=== PATIENT | female | born 1940 | race Caucasian/White ===

== ENCOUNTER 2017-03-04 10:50 | Emergency (ER) | payer OTHER ==
[2017-03-04 10:55] VITALS: BP 144/83; BMI 30.1
--- NOTE | 2017-03-04 11:23 | DR.GENAD ---
HPI - PCP Primary Care Physician: DR CALDERON - HPI Comment HPI Comment: SIMILAR TO VERTIGO ATTACK 6 MONTHS AGO. TODAY WITH SEVERE HEADACHE. NO FEVER. SLIGHT CONGESTION PRESENT. WAS UNABLE TO HOLD DOWN MECLIZINE DUE TO NAUSEA. - Complaint/Symptoms Chief Complaint Doctors Comments: DIZZINESS AND ATAXIA SINCE LAST NIGHT. WOKE WITH N/V. Chief Complaint:: PATIENT STATED THAT SHE WOKE UP SICK AND THROWING UP THIS MORNING. SHE ALSO STATED THAT SHE HAS VERTIGO THAT STARTED LAST NIGHT WHEN SHE WENT TO BED. - Nurses notes reviewed Nurses Notes Review: Yes - Source History Provided: Patient - Mode of Arrival Mode of Arrival: Ambulatory - Timing Onset of Chief Complaint: 03/03/17 Came on: Suddenly - Duration Duration: Constant Duration: Hours - Severity Severity: Moderate PMH - PMH Past Medical History: Yes Past Medical History: Hypertension, Hyperthyroidism Past Surgical History: Yes Surgical History: Hysterectomy, Ortho Surgery, Thyroidectomy - Family History History of Family Medical Conditions: Yes Family Medical History: Cancer - Social History Does patient currently use any type of tobacco product: No Have you used tobacco products in the last 12 months: No Type of Tobacco Use: None Does any household member use tobacco: No Alcohol Use: None Do you use any recreational Drugs:: No Lives With: Family Lives Where: Home - infectious screening In the last 2 months have you had wt loss of >10#?: NO Have you had fever, night sweats or hemotysis?: No Have you traveled outside the country in the last 6 months?: No Isolation: Standard ROS - Review of Systems Constitutional: Weakness, Fatigue. negative: Chills, Fever Eyes: No Symptoms Reported ENTM: Nose Congestion. negative: Ear Pain, Nose Discharge, Throat Pain Respiratoy: No Symptoms Reported Cardiovascular: No Symptoms Reported Gastrointestinal/Abdominal: Nausea, Vomiting Genitourinary: No Symptoms Reported Neurological: Headache, Weakness, Dizziness Musculoskeletal: Muscle Pain Integumentary: No Symptoms Reported Hematologic/Lymphatic: No Symptoms Reported Endocrine: No Symptoms Reported All Other Systems: Reviewed and Negative PE - Vital Signs Vitals: Pulse Rate 56 Respiratory Rate 20 Blood Pressure 144/83 O2 Sat by Pulse Oximetry 100 - General Limitations: No Limitations General Appearance: Alert - Head Head Exam: Normal Inspection - Eyes Eye exam: Normal Appearance, PERRL, EOMI. negative: Conjunctival Injection, Periorbital Swelling, Periorbital Tenderness - ENT ENT Exam: Normal External Ear Exam TM/Canal Exam: Bilateral Bulging Nose Exam: Normal Nose Exam Mouth Exam: Normal Inspection Throat Exam: Normal Inspection - Neck Neck Exam: Normal Inspection, Trachea Midline - Chest Chest Inspection: Symmetric Chest Wall Rise - Respiratory Respiratory Exam: Normal Lung Sounds Bilat Respiratory Exam: Bilateral Clear to Auscultation - Cardiovascular Cardiovascular Exam: Regular Rate, Normal Rhythm, Normal Heart Sounds - Abdominal Exam Abdominal Exam: Normal Bowel Sounds, Soft. negative: Tenderness - Extremities Extremities Exam: Normal Inspection - Back Back Exam: Normal Inspection - Neurologic Neurological Exam: Alert, Oriented X3, CN II-XII Intact. negative: Motor Sensory Deficit - Psychiatric Psychiatric Exam: Normal Affect, Normal Mood - Skin Skin Exam: Normal Color MDM - Additional Information Additional Information Obtained From: Family - Differential Diagnosis Differential Diagnosis: VERTIGO, CVA, TIA, [place], SINUSITIS, LABYRINTHITIS Course - Treatment Treatment: SEE ORDERS - Education/Counseling Education/Counseling: Patient, Family, Education Educated On: Diagnosis, Needs for Follow Up ROR - Labs Reviewed Laboratory Results Reviewed?: Yes Result Diagrams: 03/04/17 11:36 03/04/17 11:36 Laboratory: WBC 5.7 X10^3/uL (3.6-10.0) 03/04/17 11:36 RBC 4.49 X10^6/uL (3.5-5.4) 03/04/17 11:36 Hgb 13.2 g/dL (12.0-16.0) 03/04/17 11:36 Hct 38.6 % (36.0-47.0) 03/04/17 11:36 MCV 85.9 fL (80.0-100.0) 03/04/17 11:36 MCH 29.4 pg (27.0-34.0) 03/04/17 11:36 MCHC 34.3 g/dL (33.0-35.0) 03/04/17 11:36 RDW 14.1 % (11.6-16.5) 03/04/17 11:36 Plt Count 250 X10^3/uL (150.0-450.0) 03/04/17 11:36 MPV 7.7 fL (7.4-11.0) 03/04/17 11:36 Neut % 79.3 % (42.0-75.0) H 03/04/17 11:36 Lymph % 14.7 % (21.0-51.0) L 03/04/17 11:36 [place] % 4.4 % (0.0-13.0) 03/04/17 11:36 Eos % 0.6 % (0.9-2.9) L 03/04/17 11:36 Baso % 1.0 % (0.2-1.0) 03/04/17 11:36 Neut # 4.5 x10^3/uL (2.2-4.8) 03/04/17 11:36 Lymph # 0.8 X10^3/uL (1.3-2.9) L 03/04/17 11:36 [place] # 0.3 x10^3/uL (0.3-0.8) 03/04/17 11:36 Eos # 0.0 x10^3/uL (0.0-0.2) 03/04/17 11:36 Baso # 0.1 X10^3/uL (0.0-0.1) 03/04/17 11:36 Absolute Nucleated RBC 0.1 /100WBC 03/04/17 11:36 Sodium 138 mmol/L (136-145) 03/04/17 11:36 Corrected Sodium 138 mmol/L (136-145) 03/04/17 11:36 Potassium 3.5 mmol/L (3.5-5.1) 03/04/17 11:36 Chloride 103 mmol/L (98-107) 03/04/17 11:36 Carbon Dioxide 26.1 mmol/L (21-32) 03/04/17 11:36 BUN 22 mg/dL (7-18) H 03/04/17 11:36 Creatinine 1.12 mg/dL (0.55-1.02) H 03/04/17 11:36 Est GFR (MDRD) Af Amer > 60 (>60) 03/04/17 11:36 Est GFR (MDRD) Non-Af 50 (>60) L 03/04/17 11:36 Glucose 119 mg/dL (65-99) H 03/04/17 11:36 Calcium 9.7 mg/dL (8.5-10.1) 03/04/17 11:36 Corrected Calcium TNP 03/04/17 11:36 Total Bilirubin 0.40 mg/dL (0.2-1.0) 03/04/17 11:36 AST 29 Units/L (15-37) 03/04/17 11:36 ALT 29 Units/L (12-78) 03/04/17 11:36 Alkaline Phosphatase 78 Units/L (46-116) 03/04/17 11:36 Creatine Kinase 224 Units/L (26-192) H 03/04/17 11:36 CK-MB (CK-2) 4.0 ng/mL (0-4.0) 03/04/17 11:36 CK/CKMB % Calc 1.8 % (<4) 03/04/17 11:36 Troponin I < 0.02 ng/mL (0-1.5) 03/04/17 11:36 Total Protein 7.0 g/dL (6.4-8.2) 03/04/17 11:36 Albumin 3.6 g/dL (3.4-5.0) 03/04/17 11:36 Globulin 3.4 g/dL (2.5-4.5) 03/04/17 11:36 Albumin/Globulin Ratio 1.1 Ratio (1.1-2.1) 03/04/17 11:36 - XRAY XRAY Interpreted by: Radiologist XRAY Findings: report discuss with patient. - EKG Rhythm: NSR (EKG NOTED) - Diagnosis Discharge Problem: Vertigo, Dizziness Sinusitis Qualifiers: Sinusitis location: sphenoidal Chronicity: acute Recurrence: not specified as recurrent Qualified Code(s): J01.30 - Acute sphenoidal sinusitis, unspecified - Discharge Plan Disposition: HOME, SELF-CARE Condition: Stable Prescriptions: Amoxicillin [Amoxil 875 mg] 875 mg PO Q12H #20 tab Meclizine HCl 12.5 mg PO TID PRN #15 tab PRN Reason: Dizziness Ondansetron HCl [Zofran Tab 4 mg] 4 mg PO Q8H PRN #12 tab PRN Reason: Nausea/Vomiting - Follow ups/Referrals Follow ups/Referrals: NIMCO ORELLANA [Primary Care Provider] - 3 days - Instructions Instructions: Vertigo, [id number], Sinusitis, Adult, [id number], Sinus Headache, Dizziness, [id number] Additional Instructions: RETURN TO ED IF WORSE.
[2017-03-04] MEDS ORDERED: PHENERGAN INJ 25 MG IV ONE (11:27)
[2017-03-04] MEDS ORDERED: TORADOL 30 MG VIAL IVP ONE (11:27)
[2017-03-04] MEDS ORDERED: TORADOL 30 MG VIAL ONE (11:28)
[2017-03-04] MEDS ORDERED: PHENERGAN INJ 25 MG ONE (11:29)
[2017-03-04 11:51] LABS: BASOPHILS # (AUTO) 0.1 X10^3/uL (0.0-0.1); EOSINOPHILS % (AUTO) 0.6 % (0.9-2.9); HEMATOCRIT 38.6 % (36.0-47.0); HEMOGLOBIN 13.2 g/dL (12.0-16.0); LYMPHOCYTES # (AUTO) 0.8 X10^3/uL (1.3-2.9); LYMPHOCYTES % (AUTO) 14.7 % (21.0-51.0); MEAN CORPUSCULAR HEMOGLOBIN 29.4 pg (27.0-34.0); MEAN CORPUSCULAR HGB CONC 34.3 g/dL (33.0-35.0); MEAN CORPUSCULAR VOLUME 85.9 fL (80.0-100.0); MEAN PLATELET VOLUME 7.7 fL (7.4-11.0); MONOCYTES # (AUTO) 0.3 x10^3/uL (0.3-0.8); MONOCYTES % (AUTO) 4.4 % (0.0-13.0); NEUTROPHILS # (AUTO) 4.5 x10^3/uL (2.2-4.8); NEUTROPHILS % (AUTO) 79.3 % (42.0-75.0); PLATELET COUNT 250 X10^3/uL (150.0-450.0); RED BLOOD COUNT 4.49 X10^6/uL (3.5-5.4); RED CELL DISTRIBUTION WIDTH 14.1 % (11.6-16.5); WHITE BLOOD COUNT 5.7 X10^3/uL (3.6-10.0)
[2017-03-04 12:00] LABS: BLOOD UREA NITROGEN 22 mg/dL (7-18); CALCIUM 9.7 mg/dL (8.5-10.1); CARBON DIOXIDE 26.1 mmol/L (21-32); CHLORIDE 103 mmol/L (98-107); COR NA(FOR HYPERGLY) 138 mmol/L (136-145); CREATININE 1.12 mg/dL (0.55-1.02); SODIUM 138 mmol/L (136-145); TROPONIN I < 0.02 ng/mL (0-1.5); eGFR BLACK RACES > 60 (>60); eGFR NON BLACK RACES 50 (>60)
[2017-03-04 12:23] LABS: ALANINE AMINOTRANSFERASE 29 Units/L (12-78); ALBUMIN 3.6 g/dL (3.4-5.0); ALKALINE PHOSPHATASE 78 Units/L (46-116); ASPARTATE AMINO TRANSFERASE 29 Units/L (15-37); CKMB % 1.8 % (<4); CREATINE KINASE 224 Units/L (26-192)
[2017-03-04] MEDS ORDERED: ZOFRAN INJ 4 MG VIAL IVP ONE (13:46)
[2017-03-04] MEDS ORDERED: ANTIVERT TAB 25 MG PO ONE (13:46)
[2017-03-04] MEDS ORDERED: ANTIVERT TAB 25 MG ONE (13:49)
[2017-03-04] MEDS ORDERED: ZOFRAN INJ 4 MG VIAL ONE (13:49)
== END 2017-03-04 14:56 | disposition home or self-care (01) ==
LOC: ER 10:50
DX: J01.30 Acute sphenoidal sinusitis, unspecified (principal); R42 Dizziness and giddiness
CPT/HCPCS: 36415; 70450; 71010; 80053; 82550; 82553; 84484; 85025; 93005; 93010; 96365; 96374; 96375; 99283; A4222; J1885; J2405; J2550

== ENCOUNTER → 2017-05-12 | Outpatient (CLI) | payer OTHER ==
--- NOTE | 2017-05-12 13:28 | MRI ---
MRI BRAIN WITHOUT CONTRAST CLINICAL HISTORY: 76-year-old female with dizziness and altered taste after a fall. COMPARISON: CT head 03/04/2017. TECHNIQUE: Multiplanar, multisequence MR images of the brain were obtained without contrast. FINDINGS: There is no evidence of diffusion restriction. The craniocervical junction is normal. Parti ally empty sella. Pituitary and optic nerve complex are otherwise normal. Multifocal punctate T2 FLAI R signal hyperintensities are present within the periventricular and supraventricular white matter th at are nonspecific in appearance but most likely to represent microvascular white matter ischemic deuce nges. Normal signal characteristics and morphology are demonstrated within the cerebral cortex, corpu s callosum, deep webster nuclei, brainstem and cerebellum. The major vascular flow voids, to include the dural venous sinuses, are intact. Age related cortical volume loss is present, with commensurate sul [place] and ventricular prominence. The basilar cisterns are normal. The orbits and globes are within normal limits. Mucosal thickening of the right sphenoid sinus and po lypoid mucosal thickening within the floor of the right maxillary sinus. The remaining paranasal sinu ses, tympanic cavities and mastoids are clear. IMPRESSION: 1. No acute ischemic or hemorrhagic insult. 2. Mild, chronic microvascular white matter ischemic disease. 3. Polypoid mucosal thickening of the right sphenoid and maxillary sinuses, correlate clinically. Reported By:
== END | disposition home or self-care (01) | DRG 951 ==
LOC: RAD 10:41
PROVIDERS: ATTEND Nurse Practitioner Family
DX: Z87.820 Personal history of traumatic brain injury (principal); J01.30 Acute sphenoidal sinusitis, unspecified; J34.89 Other specified disorders of nose and nasal sinuses
CPT/HCPCS: 70551

== ENCOUNTER → 2017-05-27 | Outpatient (CLI) | payer OTHER | LOC: RT 09:32 | PROVIDERS: ATTEND Nurse Practitioner Family | DX: R42 Dizziness and giddiness (principal) | CPT/HCPCS: 95819 ==